=== PATIENT | female | born 1965 | race Caucasian/White ===

== ENCOUNTER 2019-03-19 09:12 | Inpatient (IN) | payer OTHER ==
[2019-03-19 10:02] VITALS: BMI 38.7
--- NOTE | 2019-03-19 11:10 | HP ---
COWS - Scale Resting Pulse: 0= MD 80 or Below Sweatin=Flushed/Facial Moisture Restless Observation: 1= Difficult to Sit Still Pupil Size: 1= Pupils >than Normal Bone or Joint Aches: 1= Mild Discomfort Runny Nose/ Eye Tearin= Nasal Congestion GI Upset > 30mins: 2= Nausea/Diarrhea Tremor Observation: 2= Slight Tremor Visible Yawning Observation: 0= None Anxiety or Irritability: 2=Irritable/Anxious Goose Flesh Skin: 0=Smooth Skin COWS Score: 12 CIWA Score - Admission Criteria OASAS Guidelines: Admission for Medically Managed Detox: Requires at least one of the followin. CIWA greater than 12 2. Seizures within the past 24 hours 3. Delirium tremens within the past 24 hours 4. Hallucinations within the past 24 hours 5. Acute intervention needed for co occurring medical disorder 6. Acute intervention needed for co occurring psychiatric disorder 7. Severe withdrawal that cannot be handled at a lower level of care (continued vomiting, continued diarrhea, abnormal vital signs) requiring intravenous medication and/or fluids 8. Admission ROS S - HPI Chief Complaint: i dont want to use no more Allergies/Adverse Reactions: Allergies Allergy/AdvReac Type Severity Reaction Status Date / Time No Known Allergies Allergy Verified 03/19/19 10:05 History of Present Illness: began using rx oxy in 2012 became problematic in 2013 and was dc'd began buying pills heroin use began first at 22 yo used until age 29 always inhaled- was in [facility] in 1995 x 1 y incarcerated in 2002 and stoppped then in [id number] now using 7-8 bags daily ocasional marijuana - Ebola screening Have you traveled outside of the country in the last 21 days: No (N) Have you had contact with anyone from an Ebola affected area: No Do you have a fever: No - Review of Systems Constitutional: Changes in sleep EENT: reports: Nose Congestion Respiratory: reports: Shortness of Breath, Wheezing Cardiac: reports: No Symptoms Reported GI: reports: Abdominal cramping : reports: No Symptoms Reported Musculoskeletal: reports: Back Pain Integumentary: reports: No Symptoms Reported Neuro: reports: No Symptoms reported Endocrine: reports: No Symptoms Reported Hematology: reports: No Symptoms Reported Psychiatric: reports: Anxious Patient History - Patient Medical History Hx Anemia: No Hx Asthma: Yes Hx Chronic Obstructive Pulmonary Disease (COPD): Yes Hx Cancer: No Hx Cardiac Disorders: No Hx Congestive Heart Failure: No Hx Hypertension: Yes Hx Hypercholesterolemia: No Hx Pacemaker: No HX Cerebrovascular Accident: No Hx Seizures: No Hx Dementia: No Hx Diabetes: Yes Hx Gastrointestinal Disorders: No Hx Liver Disease: No Hx Genitourinary Disorders: No Hx Sexually Transmitted Disorders: No Hx Renal Disease (ESRD): No Hx Thyroid Disease: No Hx Human Immunodeficiency Virus (HIV): No Hx Hepatitis C: No Hx Depression: No Hx Suicide Attempt: No Hx Bipolar Disorder: No Hx Schizophrenia: No - Patient Surgical History Past Surgical History: Yes Hx Orthopedic Surgery: Yes (ankle 2012) - PPD History Documented Results: Negative w/o proof - Reproductive History Last Menstrual Period: 03/14/19 - Smoking Cessation Smoking history: Current every day smoker Aproximately how many cigarettes per day: 10 Initiated information on smoking cessation: Yes 'Breaking Loose' booklet given: 03/19/19 - Substances abused Heroin Substance route: Inhalation Frequency: Daily Amount used: [id number] Age of first use: 22 Date of last use: 03/19/19 Admission Physical Exam [facility] - Vital Signs Vital Signs: Vital Signs - 24 hr 03/19/19 09:59 Temperature 97.6 F Pulse Rate 79 Respiratory 18 Rate Blood Pressure 143/81 - Physical General Appearance: Yes: Sweating, Anxious HEENTM: Yes: EOMI, Normocephalic Respiratory: Yes: Chest Non-Tender, Lungs Clear, Normal Breath Sounds Neck: Yes: Within Normal Limits, No masses,lesions,Nodules Cardiology: Yes: Within Normal Limits, Regular Rhythm, Regular Rate, S1, S2 Abdominal: Yes: Normal Bowel Sounds, Non Tender Genitourinary: Yes: Within Normal Limits Back: Yes: Normal Inspection Musculoskeletal: Yes: full range of Motion, Gait Steady Extremities: Yes: Normal Capillary Refill, Normal Inspection Neurological: Yes: epic application coordinator II-XII NML intact, Fully Oriented, Alert, Motor Strength 5/5, Normal Mood/Affect Integumentary: Yes: Within Normal Limits - Diagnostic (1) Opiate dependence Current Visit: Yes Status: Acute (2) Opiate withdrawal Current Visit: Yes Status: Acute (3) HTN (hypertension) Current Visit: Yes Status: Acute (4) Diabetes Current Visit: Yes Status: Acute Inpatient Rehab Admission - Rehab Decision to Admit Inpatient rehab admission?: No
[2019-03-19] MEDS ORDERED: MAGNESIUM HYDROX 2400MG/30ML ORAL SUSPENSION 30 ML CUP PO PRN (11:44)
[2019-03-19] MEDS ORDERED: MELATONIN 5 MG TABLETS PO PRN (11:44)
[2019-03-19] MEDS ORDERED: METHADONE HCL 10 MG TABLET (FOR DETOX USE ONLY) PO ONE (11:44)
[2019-03-19] MEDS ORDERED: IBUPROFEN 400 MG TABLET (FP) PO PRN (11:44)
[2019-03-19] MEDS ORDERED: NICOTINE POLACRILEX 2 MG GUM BUC PRN (11:44)
[2019-03-19] MEDS ORDERED: MENTHOL/PHENOL 1 EACH UD MM PRN (11:44)
[2019-03-19] MEDS ORDERED: MAG HYDROX/AL HYDROX/SIMETH 30 ML UNIT-DOSE CUP PO PRN (11:44)
[2019-03-19] MEDS ORDERED: BISMUTH SUBSALICYLATE 524 MG/30 ML UD PO PRN (11:44)
[2019-03-19] MEDS ORDERED: MAGNESIUM CITRATE 300 ML BOTTLE PO PRN (11:44)
[2019-03-19] MEDS ORDERED: ACETAMINOPHEN 325 MG TABLET (FP) PO PRN ×2 (11:44)
[2019-03-19] MEDS: NICOTINE 14 MG/24 HOURS TOPICAL PATCH TD SCH (12:56)
[2019-03-19] MEDS: LOSARTAN 50MG/HCTZ 12.5MG 1 TAB (FP) PO SCH (15:15)
[2019-03-19] MEDS: hydrOXYzine PAMOATE 25 MG CAPSULE (FP) PO PRN (19:39)
[2019-03-19] MEDS: METHOCARBAMOL 500 MG TABLET PO PRN (19:39)
[2019-03-19] MEDS: cloNIDine HCL 0.1 MG TABLET PO PRN (19:39)
[2019-03-19] MEDS: THIAMINE HCL 100 MG TABLET (FP) PO SCH (23:36)
[2019-03-20] MEDS: cloNIDine HCL 0.1 MG TABLET PO PRN ×2 (03:34→19:53)
[2019-03-20 09:58] LABS: HEMATOCRIT 39.3 % (32.4-45.2); HEMOGLOBIN 12.9 GM/dL (10.7-15.3); MCH 27.4 pg (25.7-33.7); MCHC 32.7 g/dl (32.0-36.0); MEAN CELL VOLUME 83.9 fl (80-96); MEAN PLT VOLUME 7.4 fl (7.5-11.1); PLATELET COUNT 321 K/MM3 (134-434); RBC 4.68 M/mm3 (3.60-5.2); RDW 14.3 % (11.6-15.6); WHITE BLOOD COUNT 7.2 K/mm3 (4.0-10.0)
[2019-03-20] MEDS ORDERED: METHADONE HCL 5 MG TABLET (FOR DETOX USE ONLY) PO ONE (10:00)
[2019-03-20] MEDS ORDERED: ONDANSETRON *ODT* 4 MG TABLET SL PRN (10:24)
--- NOTE | 2019-03-20 10:25 | PN ---
[facility] COWS - Scale Resting Pulse: 1= [place] 81-100 Sweatin= Chills/Flushing Restless Observation: 1= Difficult to Sit Still Pupil Size: 0= Normal to Room Light Bone or Joint Aches: 2= Severe Diffuse Aches Runny Nose/ Eye Tearin= Runny Nose/Eyes GI Upset > 30mins: 2= Nausea/Diarrhea Tremor Observation of Outstretched Hands: 2= Slight Tremor Visible Yawning Observation: 2= >3x During Session Anxiety or Irritability: 2=Irritable/Anxious Goose Flesh Skin: 0=Smooth Skin COWS Score: 15 [facility] Progress Note (SOAP) Subjective: sweats shakes nausea interrupted sleep body aches irritable Objective: 03/20/19 10:27 Vital Signs Temperature 98.9 F 03/20/19 09:28 Pulse Rate 81 03/20/19 09:28 Respiratory Rate 18 03/20/19 09:28 Blood Pressure 148/89 03/20/19 09:28 O2 Sat by Pulse Oximetry (%) Laboratory Tests 03/19/19 03/20/19 03/20/19 11:53 06:18 08:00 WBC 7.2 RBC 4.68 Hgb 12.9 Hct 39.3 MCV 83.9 MCH 27.4 MCHC 32.7 RDW 14.3 Plt Count 321 MPV 7.4 L POC Glucometer 118 142 rest of labs pending aaox3 ambulating no acute distress Assessment: 03/20/19 10:27 withdrawals Plan: continue detox increase fluids zofran sl prn valium 10mg q4hr prn pending labs
[2019-03-20] MEDS: LOSARTAN 50MG/HCTZ 12.5MG 1 TAB (FP) PO SCH (10:42)
[2019-03-20] MEDS: NICOTINE 14 MG/24 HOURS TOPICAL PATCH TD SCH (10:43)
[2019-03-20] MEDS: PRENATAL VITAMINS W/ FOLIC ACID TABLET (FP) PO SCH (10:43)
[2019-03-20 10:49] LABS: ALBUMIN 3.2 g/dl (3.4-5.0); BILIRUBIN,TOTAL 0.5 mg/dL (0.2-1); BLOOD UREA NITROGEN 10.5 mg/dL (7-18); CALCIUM 9.8 mg/dL (8.5-10.1); CREATININE 0.7 mg/dL (0.55-1.3); POTASSIUM 3.8 mmol/L (3.5-5.1); TOT PROT 6.6 g/dl (6.4-8.2)
[2019-03-20] MEDS: diazePAM 5 MG TABLET PO PRN ×2 (16:03→23:13)
[2019-03-20] MEDS: hydrOXYzine PAMOATE 25 MG CAPSULE (FP) PO PRN (19:53)
[2019-03-20] MEDS: METHOCARBAMOL 500 MG TABLET PO PRN (19:53)
[2019-03-20] MEDS: THIAMINE HCL 100 MG TABLET (FP) PO SCH (22:20)
[2019-03-21] MEDS: METHOCARBAMOL 500 MG TABLET PO PRN (06:14)
[2019-03-21] MEDS: hydrOXYzine PAMOATE 25 MG CAPSULE (FP) PO PRN (06:14)
[2019-03-21] MEDS: diazePAM 5 MG TABLET PO PRN (06:15)
[2019-03-21 07:50] VITALS: TEMP 97.5
[2019-03-21 09:36] VITALS: PULSE 68
[2019-03-21] MEDS ORDERED: METHADONE HCL 10 MG TABLET (FOR DETOX USE ONLY) PO ONE (10:00)
[2019-03-21] MEDS: PRENATAL VITAMINS W/ FOLIC ACID TABLET (FP) PO SCH (10:30)
[2019-03-21] MEDS: NICOTINE 14 MG/24 HOURS TOPICAL PATCH TD SCH (10:31)
[2019-03-21] MEDS: LOSARTAN 50MG/HCTZ 12.5MG 1 TAB (FP) PO SCH (10:31)
--- NOTE | 2019-03-21 14:03 | PN ---
[facility] COWS - Scale Resting Pulse: 0= [place] 80 or Below Sweatin= No chills or Flushing Restless Observation: 1= Difficult to Sit Still Pupil Size: 1= Pupils >than Normal Bone or Joint Aches: 1= Mild Discomfort Runny Nose/ Eye Tearin= Nasal Congestion GI Upset > 30mins: 1= Stomach Cramp Tremor Observation of Outstretched Hands: 1= Tremor [place], Not Seen Yawning Observation: 0= None Anxiety or Irritability: 2=Irritable/Anxious Goose Flesh Skin: 0=Smooth Skin COWS Score: 8 [facility] Progress Note (SOAP) Subjective: alert,irritable,anxious,interrupted sleep,pain in the body and back Objective: 03/21/19 14:01 Vital Signs Temperature 97.5 F L 03/21/19 09:35 Pulse Rate 68 03/21/19 09:35 Respiratory Rate 18 03/21/19 09:35 Blood Pressure 152/83 03/21/19 09:35 O2 Sat by Pulse Oximetry (%) Laboratory Last Values WBC 7.2 K/mm3 (4.0-10.0) 03/20/19 08:00 RBC 4.68 M/mm3 (3.60-5.2) 03/20/19 08:00 Hgb 12.9 GM/dL (10.7-15.3) 03/20/19 08:00 Hct 39.3 % (32.4-45.2) 03/20/19 08:00 MCV 83.9 fl (80-96) 03/20/19 08:00 MCH 27.4 pg (25.7-33.7) 03/20/19 08:00 MCHC 32.7 g/dl (32.0-36.0) 03/20/19 08:00 RDW 14.3 % (11.6-15.6) 03/20/19 08:00 Plt Count 321 K/MM3 (134-434) 03/20/19 08:00 MPV 7.4 fl (7.5-11.1) L 03/20/19 08:00 Sodium 141 mmol/L (136-145) 03/20/19 08:00 Potassium 3.8 mmol/L (3.5-5.1) 03/20/19 08:00 Chloride 104 mmol/L (98-107) 03/20/19 08:00 Carbon Dioxide 31 mmol/L (21-32) 03/20/19 08:00 Anion Gap 5 MMOL/L (8-16) L 03/20/19 08:00 BUN 10.5 mg/dL (7-18) 03/20/19 08:00 Creatinine 0.7 mg/dL (0.55-1.3) 03/20/19 08:00 Est GFR (CKD-EPI)AfAm 116.27 03/20/19 08:00 Est GFR (CKD-EPI)NonAf 100.32 03/20/19 08:00 POC Glucometer 142 UNITS (80-120) 03/20/19 06:18 Random Glucose 142 mg/dL (74-106) H 03/20/19 08:00 Calcium 9.8 mg/dL (8.5-10.1) 03/20/19 08:00 Total Bilirubin 0.5 mg/dL (0.2-1) 03/20/19 08:00 AST 23 U/L (15-37) 03/20/19 08:00 ALT 34 U/L (13-61) 03/20/19 08:00 Alkaline Phosphatase 109 U/L (45-117) 03/20/19 08:00 Total Protein 6.6 g/dl (6.4-8.2) 03/20/19 08:00 Albumin 3.2 g/dl (3.4-5.0) L 03/20/19 08:00 RPR Titer Nonreactive (NONREACTIVE) 03/20/19 08:00 Assessment: 03/21/19 14:02 withdrawal symptom Plan: continue detox methadone regimen,bgm monitoring
[2019-03-21 15:13] VITALS: BP 129/66
--- NOTE | 2019-03-21 15:46 | PN ---
[facility] Progress Note Note: patient did not want to complete treatment,all attempts to convince patient to stay with no avail, high risk of relapsing explained,patient understood,signed release ama,advise to call 911 if not feeling well, patient has all medications at home
--- NOTE | 2019-03-21 15:49 | DS ---
[facility] Detox Discharge Summary Admission Date: 03/19/19 Discharge Date: 03/21/19 - History Present History: Opioid Dependence Additional Comments: patient signed release ama Pertinent Past History: hypertension marie 2 dm - Physical Exam Results Vital Signs: Vital Signs Temperature 97.5 F L 03/21/19 15:13 Pulse Rate 68 03/21/19 15:13 Respiratory Rate 18 03/21/19 15:13 Blood Pressure 129/66 03/21/19 15:13 O2 Sat by Pulse Oximetry (%) Pertinent Admission Physical Exam Findings: withdrawal signs and symptom - Medication Discharge Medications: Ambulatory Orders Losartan/Hydrochlorothiazide [Losartan-Hctz 50-12.5 mg Tab] 1 each PO DAILY 08/02 Metformin HCl [Glucophage] 500 mg PO DAILY 03/19/19 Metoprolol Succinate [Toprol Xl] 50 mg PO DAILY 03/19/19 Omeprazole 20 mg PO DAILY 03/19/19 - Diagnosis (1) Opioid dependence with withdrawal Current Visit: Yes Status: Acute (2) HTN (hypertension) Current Visit: Yes Status: Acute (3) DM2 (diabetes mellitus, type 2) Current Visit: Yes Status: Acute - AMA Did Patient Leave Against Medical Advice: Yes
[2019-03-22] MEDS ORDERED: METHADONE HCL 5 MG TABLET (FOR DETOX USE ONLY) PO ONE (06:00)
== END 2019-03-21 16:12 | disposition left against medical advice (07) | DRG 770 ==
LOC: YASAS 09:12 → Y6N 11:26
PROVIDERS: ADMIT Allergy & Immunology; ATTEND Allergy & Immunology
PROC: HZ2ZZZZ Detoxification Services for Substance Abuse Treatment (ICD-10-PCS; principal; 2019-03-19)
DX: F11.23 Opioid dependence with withdrawal (principal); I10 Essential (primary) hypertension; E11.9 Type 2 diabetes mellitus without complications; J44.9 Chronic obstructive pulmonary disease, unspecified; Z79.84 Long term (current) use of oral hypoglycemic drugs
CPT/HCPCS: 36415; 80053; 82962; 85027; 86593; J0735